=== PATIENT | male | born 1970 | race Caucasian/White ===

== ENCOUNTER 2019-02-08 13:51 | Outpatient (CLI) | payer MEDICARE ==
[~2019-02-08] VITALS: Ht 182.9 cm; Wt 95.3 kg
--- NOTE | 2019-02-08 14:48 | General Progress Note ---
Assessment/Plan Problem List: (1) Infectious colitis ICD Codes: A09 - Infectious gastroenteritis and colitis, unspecified SNOMED: 72374926 (2) DM (3) Gallstone ICD Codes: K80.20 - Calculus of gallbladder without cholecystitis without obstruction SNOMED: 100799548 (4) HIV (human immunodeficiency virus infection) ICD Codes: B20 - Human immunodeficiency virus [HIV] disease SNOMED: 03070677 Assessment/Plan colonoscopy results reviewed prn imodium RTC PRN Subjective ROS Limited/Unobtainable: Yes Objective General Appearance: alert EENT: normal ENT inspection Neck: supple Cardiovascular: normal rate Respiratory/Chest: lungs clear Abdomen: normal bowel sounds, non tender, soft Extremities: non-tender Kevan Eilzabeth MD Feb 08, 2019 14:47
[2019-02-08] MEDS ORDERED: TRAZODONE HCL50 MG ORAL (15:57)
[2019-02-08] MEDS ORDERED: UN (15:57)
[2019-02-08] MEDS ORDERED: UNOBMED (15:57)
[2019-02-08] MEDS ORDERED: MULTIVITAMINS1 EAC2 ORAL (15:57)
[2019-02-08] MEDS ORDERED: GLUCOPHAGE500 MG ORAL (15:57)
[2019-02-08 15:59] VITALS: BP 105/74
== END 2019-02-08 16:14 | disposition home or self-care (01) ==
LOC: PAN 13:51
DX: K80.20 Calculus of gallbladder without cholecystitis without obstruction (principal); A09 Infectious gastroenteritis and colitis, unspecified; E11.9 Type 2 diabetes mellitus without complications; B20 Human immunodeficiency virus [HIV] disease